=== PATIENT | female | born 1970 | race African-American/Black ===

== ENCOUNTER 2023-12-11 06:27 | Emergency (ER) | payer MEDICAID ==
[~2023-12-11] VITALS: Ht 157.5 cm; Wt 113.0 kg
[2023-12-11 06:41] VITALS: BP 131/68; PULSE 81; RESP 14; TEMP 98.6; O2SAT 98
[2023-12-11 08:32] LABS: HEMATOCRIT. 35.6 % (36.0-48.0); HEMOGLOBIN. 11.8 g/dL (12.0-16.0); MEAN CORPUSCULAR HEMOGLOBIN 27.9 pg (28.0-32.0); MEAN CORPUSCULAR HGB CONC 33.2 g/dL (31.0-37.0); MEAN CORPUSCULAR VOLUME 84.2 fL (81.0-99.0); MEAN PLATELET VOLUME 8.4 fl (7.4-10.4); PLATELET 308 x1000/uL (130-400); RED BLOOD CELL COUNT 4.23 mill/uL (4.2-5.4); RED CELL DISTRIBUTION WIDTH 14.8 % (11.6-14.6)
[2023-12-11 08:35] LABS: DIFFERENTIAL COMMENT 1
[2023-12-11 08:52] LABS: HCG SCREEN NEGATIVE
[2023-12-11 09:00] LABS: ALANINE AMINOTRANSFERASE 14 IU/L (10-49); ALBUMIN 4.3 g/dL (3.2-4.8); ASPARTATE AMINOTRANSFERASE 25 IU/L (<34); BILIRUBIN TOTAL 0.6 mg/dL (0.1-1.0); CALCIUM 9.6 mg/dL (8.7-10.4); CARBON DIOXIDE 21 mEq/L (21-32); CHLORIDE 105 mEq/L (98-107); CREATININE 0.6 mg/dL (0.6-1.0); GLUCOSE 123 mg/dL (70-105); POTASSIUM 3.2 mEq/L (3.5-5.1); SODIUM 138 mEq/L (136-145); UREA NITROGEN BLOOD 6 mg/dL (9-23)
[2023-12-11 09:39] LABS: TROPONIN I HIGH SENSITIVITY < 4 ng/L (3.0-34)
[2023-12-11] MEDS ORDERED: POTASSIUM CHLORIDE 20MEQ/PACKET PO SCH (10:00)
[2023-12-11 10:05] LABS: CLARITY URINE CLEAR (CLEAR); COLOR URINE YELLOW (YELLOW); GLUCOSE URINE NEGATIVE (NEGATIVE); KETONES URINE NEGATIVE (NEGATIVE); LEUKOCYTE ESTERASE URINE 3+ (NEGATIVE); NITRITE URINE NEGATIVE (NEGATIVE); OCCULT BLOOD URINE TRACE (NEGATIVE); PH URINE 6.5 (4.5-8.0); PROTEIN URINE NEGATIVE (NEGATIVE); UROBILINOGEN URINE 0.2 E.U./dL (0.2-1.0)
[2023-12-11 10:27] LABS: BACTERIA URINE 2+; SQUAMOUS EPITHELIAL CELL URINE 1+ /lpf (RARE/1+); YEAST URINE NONE SEEN
[2023-12-11] MEDS ORDERED: SULF1TAB48 MT (10:42)
[2023-12-11 10:57] LABS: PLATELET ESTIMATE NORMAL
== END 2023-12-11 08:33 | disposition home or self-care (01) ==
LOC: ER 06:45
DX: N39.0 Urinary tract infection, site not specified (principal); I10 Essential (primary) hypertension
CPT/HCPCS: 36415; 71045; 80053; 81003; 84484; 84703; 85025; 93005; 99285

== ENCOUNTER 2023-12-24 11:51 | Emergency (ER) | payer MEDICAID ==
[~2023-12-24] VITALS: Ht 165.1 cm; Wt 100.0 kg
[~2023-12-24 11:51] MED LIST: SULF1TAB48 MT
[2023-12-24 11:59] VITALS: BP 139/79; PULSE 68; RESP 16; TEMP 98.3; O2SAT 99
[2023-12-24 13:23] LABS: CLARITY URINE CLEAR (CLEAR); COLOR URINE YELLOW (YELLOW); GLUCOSE URINE NEGATIVE (NEGATIVE); KETONES URINE NEGATIVE (NEGATIVE); LEUKOCYTE ESTERASE URINE NEGATIVE (NEGATIVE); NITRITE URINE NEGATIVE (NEGATIVE); OCCULT BLOOD URINE NEGATIVE (NEGATIVE); PROTEIN URINE NEGATIVE (NEGATIVE); SPECIFIC GRAVITY URINE 1.005 (1.005-1.030); UROBILINOGEN URINE 0.2 E.U./dL (0.2-1.0)
== END 2023-12-24 14:41 | disposition home or self-care (01) ==
LOC: ER 11:51
DX: I10 Essential (primary) hypertension (principal); E11.9 Type 2 diabetes mellitus without complications; Z90.710 Acquired absence of both cervix and uterus
CPT/HCPCS: 81003; 81025; 99283

== ENCOUNTER 2025-08-16 10:15 | Emergency (ER) | payer MEDICAID ==
[~2025-08-16] VITALS: Ht 167.6 cm; Wt 74.0 kg
[2025-08-16 10:17] VITALS: O2SAT 99
[2025-08-16 12:40] LABS: BASOPHILS % 0.4 % (0.0-2.0); EOSINOPHILS % 1.3 % (0.0-5.0); HEMATOCRIT. 37.5 % (36.0-48.0); HEMOGLOBIN. 12.3 g/dL (12.0-16.0); LYMPHOCYTES % 24.3 % (20.0-50.0); MEAN PLATELET VOLUME 8.1 fl (7.4-10.4); MONOCYTES % 7.6 % (2.0-8.0); NEUTROPHILS % 66.4 % (40.0-76.0); PLATELET 353 x1000/uL (130-400); RED BLOOD CELL COUNT 4.51 mill/uL (4.2-5.4); RED CELL DISTRIBUTION WIDTH 15.7 % (11.6-14.6)
[2025-08-16 12:56] LABS: CREATININE 0.7 mg/dL (0.6-1.0)
[2025-08-16 12:57] LABS: UREA NITROGEN BLOOD 8 mg/dL (9-23)
[2025-08-16 13:30] VITALS: BP 137/88; PULSE 54; RESP 14; TEMP 36.9; O2SAT 100
== END 2025-08-16 13:35 | disposition home or self-care (01) ==
LOC: ER 10:28
DX: I10 Essential (primary) hypertension (principal); R51.9 Headache, unspecified; R53.83 Other fatigue
CPT/HCPCS: 36415; 71045; 80048; 85025; 93005; 99285